=== PATIENT | female | born 1980 | race American Indian/Alaskan Native ===

== ENCOUNTER 2016-09-26 21:50 | Emergency (ER) | payer MEDICARE ==
[2016-09-26 22:30] VITALS: BP 111/76
[2016-09-26 22:42] LABS: Basophils % (Auto) 0.1 % (0.0-1.8); Eosinophils % (Auto) 0.8 % (0.0-4.3); Hematocrit 34.1 % (30.3-42.9); Hemoglobin 11.2 gm/dl (10.1-14.3); Mean Corpuscular HGB Conc 33 % (30-34); Mean Corpuscular Hemoglobin 27 pg (28-32); Mean Corpuscular Volume 82 fl (79-97); Platelet Count 230 K/mm3 (140-440); Red Blood Count 4.18 M/mm3 (3.65-5.03); Red Cell Distribution Width 15.6 % (13.2-15.2); White Blood Count 4.7 K/mm3 (4.5-11.0)
[2016-09-26 23:10] LABS: Anion Gap 17 mmol/L; BUN/Creatinine Ratio 21.66; Blood Urea Nitrogen 13 mg/dL (7-17); Calcium 9.3 mg/dL (8.4-10.2); Carbon Dioxide 23 mmol/L (22-30); Chloride 100.4 mmol/L (98-107); Glucose 91 mg/dL (65-100); Potassium 3.8 mmol/L (3.6-5.0); Sodium 137 mmol/L (137-145)
--- NOTE | 2016-10-01 13:39 | ED Elopement Review ---
ED Pt Elopement review - Results review Lab results: Laboratory Tests 09/26/16 09/26/16 22:32 22:32 WBC 4.7 RBC 4.18 Hgb 11.2 Hct 34.1 MCV 82 MCH 27 L MCHC 33 RDW 15.6 H Plt Count 230 Lymph % (Auto) 26.0 [place] % (Auto) 10.1 H Eos % (Auto) 0.8 Baso % (Auto) 0.1 Lymph # 1.2 [place] # 0.5 Eos # 0.0 Baso # 0.0 Seg Neutrophils % 63.0 Seg Neutrophils # 2.9 Sodium 137 Potassium 3.8 Chloride 100.4 Carbon Dioxide 23 Anion Gap 17 BUN 13 Creatinine 0.6 L Estimated GFR > 60 BUN/Creatinine Ratio 21.66 Glucose 91 Calcium 9.3 Troponin T < 0.010 - Call Back decision Pt Call Back Decision: No action required
== END 2016-09-27 02:23 | disposition left against medical advice (07) ==
LOC: ED 21:50
DX: R07.89 Other chest pain (principal); R05 Cough; Z53.21 Procedure and treatment not carried out due to patient leaving prior to being seen by health care provider
CPT/HCPCS: 36415; 80048; 84484; 85025; 93005; 93010

== ENCOUNTER 2016-10-03 15:39 | Emergency (ER) | payer MEDICARE ==
[2016-10-03 16:23] LABS: Basophils % (Auto) 0.1 % (0.0-1.8); Eosinophils % (Auto) 0.6 % (0.0-4.3); Hematocrit 34.2 % (30.3-42.9); Mean Corpuscular HGB Conc 32 % (30-34); Mean Corpuscular Hemoglobin 27 pg (28-32); Mean Corpuscular Volume 83 fl (79-97); Platelet Count 219 K/mm3 (140-440); Red Blood Count 4.12 M/mm3 (3.65-5.03); Red Cell Distribution Width 16.3 % (13.2-15.2); White Blood Count 5.3 K/mm3 (4.5-11.0)
[2016-10-03 16:34] LABS: Anion Gap 19 mmol/L; BUN/Creatinine Ratio 18.33; Blood Urea Nitrogen 11 mg/dL (7-17); Carbon Dioxide 23 mmol/L (22-30); Chloride 99.5 mmol/L (98-107); Glucose 91 mg/dL (65-100); Sodium 137 mmol/L (137-145)
--- NOTE | 2016-10-03 19:46 | Emergency Department Report ---
HPI - General Chief Complaint: Chest Pain Time Seen by Provider: 10/03/16 19:21 - HPI HPI: Patient here reported she is having nausea and chest pain. She has been having chest pain for years but no she's having chest pain 1 month. On the right side of her chest pain is 6 out of 10 and feels like pressure. Patient has a history of psych disorder to include schizophrenia. Patient says she forgot to tell triage nurse that she had a blood clot in her lung last year and she was on blood thinner and was taken off of it 5 months ago. She says she thinks it was in her lungs or in her abdomen but she is not sure. She said the chest pain comes and goes. She denies any nausea or vomiting to me. Denies Fever chills. Denies any history of heart disease. SHe said when she had her chest pain today had worked her up but she didn't follow up with cardiology. Patient denies any leg pain or swelling. Denies any pain in her calf. Denies any coughing. ED Past Medical Hx - Past Medical History Previous Medical History?: Yes Hx Pulmonary Embolism: Yes (2016 per patient) Hx Psychiatric Treatment: Yes (PSCHY/SCHIZO) - Surgical History Past Surgical History?: Yes Additional Surgical History: x2. bowel resection. tubal ligation - Family History Family history: hypertension - Social History Smoking Status: Former Smoker Substance Use Type: None - Medications Home Medications: Home Medications Medication Instructions Recorded Confirmed Last Taken Type Promethazine [Phenergan TAB] 25 mg PO Q8HR PRN #15 tab 10/03/16 Unknown Rx ED Review of Systems ROS: Stated complaint: NAUSEA/CHEST PAIN Other details as noted in HPI Comment: All other systems reviewed and negative Constitutional: denies: chills, fever Eyes: denies: eye discharge ENT: denies: throat pain, congestion Respiratory: no symptoms reported Cardiovascular: chest pain. denies: palpitations (right chest), dyspnea on exertion, edema, syncope Gastrointestinal: nausea. denies: abdominal pain, vomiting, diarrhea, constipation, hematemesis, melena, hematochezia Genitourinary: denies: urgency, dysuria, frequency, hematuria, discharge Musculoskeletal: denies: back pain, joint swelling, arthralgia, myalgia Skin: denies: rash Neurological: denies: headache, weakness, numbness, paresthesias, confusion, abnormal gait, vertigo Physical Exam - Physical Exam Vital Signs: Vital Signs 10/03/16 15:51 Temperature 98.6 F Pulse Rate 80 Respiratory 20 Rate Blood Pressure 117/70 O2 Sat by Pulse 100 Oximetry Vital Signs 10/03/16 05 15:51 20:29 Temperature 98.6 F 99.3 F Pulse Rate 80 63 Respiratory 20 18 Rate Blood Pressure 117/70 Blood Pressure 108/63 [Right] O2 Sat by Pulse 100 100 Oximetry General: This is a 36-year-old female well-nourished well-developed in no acute distress. Physical Exam: Head: Normocephalic atraumatic Mouth: Moist, no pharyngeal exudate or erythema. Uvula is midline and oral airway is patent. No facial swelling. No peritonsillar abscesses. Neck: Supple, no C-spine tenderness, no tracheal deviation. Nontender to palpate. no adenopathy Abdomen: Soft, nontender to palpate in all quadrants, normal bowel sounds in all quadrant and negative CVA tenderness bilaterally. Back: No vertebral or paraspinal tenderness. No saddle anesthesia. Patient able to ambulate without any difficulties. Negative SLR bilaterally. Eyes: Bilateral pupils equal and reactive to light, bilateral EOM intact. Bilateral sclera and conjunctiva without injection. Normal accommodation. Lungs: Clear to auscultate bilaterally no rhonchi wheezes or rales. Normal work of breathing . No chest wall tenderness extremity; No CCE. +2 pulses. No neurovascular compromise Cardiovascular: S1-S2, regular rate rhythm. No murmurs. Capillary refill is less than 3 seconds Skin: clean Dry and intact no rash no lesions Psych: Normal mood and behavior ED Course Vital Signs 10/03/16 15:51 Temperature 98.6 F Pulse Rate 80 Respiratory 20 Rate Blood Pressure 117/70 O2 Sat by Pulse 100 Oximetry Vital Signs 10/03/16 10/03/16 15:51 20:29 Temperature 98.6 F 99.3 F Pulse Rate 80 63 Respiratory 20 18 Rate Blood Pressure 117/70 Blood Pressure 108/63 [Right] O2 Sat by Pulse 100 100 Oximetry - Reevaluation(s) Reevaluation #1: 10/03/16 23:43 She given Zofran 4 mg ODT for nausea. Reevaluation #2: 10/03/16 23:45 tolerate oral liquids in the emergency room. She has protein and trace ketones in her urine. ED Medical Decision Making - Lab Data Result diagrams: 10/03/16 16:02 10/03/16 16:02 Lab Results 10/03/16 10/03/16 10/03/16 Range/Units 16:02 16:02 19:15 WBC 5.3 (4.5-11.0) K/mm3 RBC 4.12 (3.65-5.03) M/mm3 Hgb 11.0 (10.1-14.3) gm/dl Hct 34.2 (30.3-42.9) % MCV 83 (79-97) fl MCH 27 L (28-32) pg MCHC 32 (30-34) % RDW 16.3 H (13.2-15.2) % Plt Count 219 (140-440) K/mm3 Lymph % (Auto) 29.7 (13.4-35.0) % [place] % (Auto) 10.7 H (0.0-7.3) % Eos % (Auto) 0.6 (0.0-4.3) % Baso % (Auto) 0.1 (0.0-1.8) % Lymph # 1.6 (1.2-5.4) K/mm3 [place] # 0.6 (0.0-0.8) K/mm3 Eos # 0.0 (0.0-0.4) K/mm3 Baso # 0.0 (0.0-0.1) K/mm3 Seg Neutrophils % 58.9 (40.0-70.0) % Seg Neutrophils # 3.1 (1.8-7.7) K/mm3 PT (12.2-14.9) Sec. INR (0.87-1.13) APTT (24.2-36.6) Sec. D-Dimer (0-234) ng/mlDDU Sodium 137 (137-145) mmol/L Potassium 4.0 (3.6-5.0) mmol/L Chloride 99.5 (98-107) mmol/L Carbon Dioxide 23 (22-30) mmol/L Anion Gap 19 mmol/L BUN 11 (7-17) mg/dL Creatinine 0.6 L (0.7-1.2) mg/dL Estimated GFR > 60 ml/min BUN/Creatinine Ratio 18.33 % Glucose 91 (65-100) mg/dL Calcium 9.0 (8.4-10.2) mg/dL Troponin T < 0.010 < 0.010 (0.00-0.029) ng/mL Urine Color (Yellow) Urine Turbidity (Clear) Urine pH (5.0-7.0) Ur Specific [place] (1.003-1.030) Urine Protein (Negative) mg/dL Urine Glucose (UA) (Negative) mg/dL Urine Ketones (Negative) mg/dL Urine Blood (Negative) Urine Nitrite (Negative) Urine Bilirubin (Negative) Urine Urobilinogen (<2.0) mg/dL Ur Leukocyte Esterase (Negative) Urine WBC (Auto) (0.0-6.0) /HPF Urine RBC (Auto) (0.0-6.0) /HPF U Epithel Cells (Auto) (0-13.0) /HPF Urine Bacteria (Auto) (Negative) /HPF Urine Mucus /HPF Urine HCG, Qual (Negative) 10/03/16 10/03/16 10/03/16 Range/Units 20:00 20:00 20:51 WBC (4.5-11.0) K/mm3 RBC (3.65-5.03) M/mm3 Hgb (10.1-14.3) gm/dl Hct (30.3-42.9) % MCV (79-97) fl MCH (28-32) pg MCHC (30-34) % RDW (13.2-15.2) % Plt Count (140-440) K/mm3 Lymph % (Auto) (13.4-35.0) % [place] % (Auto) (0.0-7.3) % Eos % (Auto) (0.0-4.3) % Baso % (Auto) (0.0-1.8) % Lymph # (1.2-5.4) K/mm3 [place] # (0.0-0.8) K/mm3 Eos # (0.0-0.4) K/mm3 Baso # (0.0-0.1) K/mm3 Seg Neutrophils % (40.0-70.0) % Seg Neutrophils # (1.8-7.7) K/mm3 PT 13.2 (12.2-14.9) Sec. INR 1.01 (0.87-1.13) APTT 27.6 (24.2-36.6) Sec. D-Dimer 362.52 H (0-234) ng/mlDDU Sodium (137-145) mmol/L Potassium (3.6-5.0) mmol/L Chloride (98-107) mmol/L Carbon Dioxide (22-30) mmol/L Anion Gap mmol/L BUN (7-17) mg/dL Creatinine (0.7-1.2) mg/dL Estimated GFR ml/min BUN/Creatinine Ratio % Glucose (65-100) mg/dL Calcium (8.4-10.2) mg/dL Troponin T (0.00-0.029) ng/mL Urine Color Yellow (Yellow) Urine Turbidity Clear (Clear) Urine pH 5.0 (5.0-7.0) Ur Specific [place] 1.030 (1.003-1.030) Urine Protein 30 mg/dl (Negative) mg/dL Urine Glucose (UA) Neg (Negative) mg/dL Urine Ketones Tr (Negative) mg/dL Urine Blood Neg (Negative) Urine Nitrite Neg (Negative) Urine Bilirubin Neg (Negative) Urine Urobilinogen 2.0 (<2.0) mg/dL Ur Leukocyte Esterase Tr (Negative) Urine WBC (Auto) 4.0 (0.0-6.0) /HPF Urine RBC (Auto) 1.0 (0.0-6.0) /HPF U Epithel Cells (Auto) 5.0 (0-13.0) /HPF Urine Bacteria (Auto) 1+ (Negative) /HPF Urine Mucus 3+ /HPF Urine HCG, Qual Negative (Negative) 10/03/16 Range/Units 21:22 WBC (4.5-11.0) K/mm3 RBC (3.65-5.03) M/mm3 Hgb (10.1-14.3) gm/dl Hct (30.3-42.9) % MCV (79-97) fl MCH (28-32) pg MCHC (30-34) % RDW (13.2-15.2) % Plt Count (140-440) K/mm3 Lymph % (Auto) (13.4-35.0) % [place] % (Auto) (0.0-7.3) % Eos % (Auto) (0.0-4.3) % Baso % (Auto) (0.0-1.8) % Lymph # (1.2-5.4) K/mm3 [place] # (0.0-0.8) K/mm3 Eos # (0.0-0.4) K/mm3 Baso # (0.0-0.1) K/mm3 Seg Neutrophils % (40.0-70.0) % Seg Neutrophils # (1.8-7.7) K/mm3 PT (12.2-14.9) Sec. INR (0.87-1.13) APTT (24.2-36.6) Sec. D-Dimer (0-234) ng/mlDDU Sodium (137-145) mmol/L Potassium (3.6-5.0) mmol/L Chloride (98-107) mmol/L Carbon Dioxide (22-30) mmol/L Anion Gap mmol/L BUN (7-17) mg/dL Creatinine (0.7-1.2) mg/dL Estimated GFR ml/min BUN/Creatinine Ratio % Glucose (65-100) mg/dL Calcium (8.4-10.2) mg/dL Troponin T < 0.010 (0.00-0.029) ng/mL Urine Color (Yellow) Urine Turbidity (Clear) Urine pH (5.0-7.0) Ur Specific [place] (1.003-1.030) Urine Protein (Negative) mg/dL Urine Glucose (UA) (Negative) mg/dL Urine Ketones (Negative) mg/dL Urine Blood (Negative) Urine Nitrite (Negative) Urine Bilirubin (Negative) Urine Urobilinogen (<2.0) mg/dL Urine culture pending Ur Leukocyte Esterase (Negative) Urine WBC (Auto) (0.0-6.0) /HPF Urine RBC (Auto) (0.0-6.0) /HPF U Epithel Cells (Auto) (0-13.0) /HPF Urine Bacteria (Auto) (Negative) /HPF Urine Mucus /HPF Urine HCG, Qual (Negative) Urine culture pending - EKG Data -: EKG Interpreted by Me (Dr. Reese) EKG shows normal: sinus rhythm (75 bpm) Rate: normal - EKG Data Interpretation: no acute changes, normal EKG - Radiology Data Radiology results: report reviewed Chest x-ray revealed no acute cardiopulmonary process CTA chest reveals no evidence of pulmonary embolism. No acute findings and chest. Heart and thoracic aorta appears normal. - Medical Decision Making ED Course: I explained all lab results today include urine and diagnostics to include chest x-ray and CT scan of the chest the patient. I explained to her that she did not have any pulmonary embolism which is a blood clot in her lungs. Bilateral lower extremity and bilateral upper extremity without any clubbing cyanosis or edema. No calf tenderness bilaterally and negative Homans sign. Proceeded to do CT angiogram of the chest because d-dimer was elevated. Patient has chronic chest pain which she sought medical attention for per patient several times and she said everything came back negative at all times. He told me that she had clot in her lungs or abdomen she's not sure where last stair and she was on blood thinner and was taken off of it 5 months ago. His constipation that she has some protein and trace ketones in her urine so she needs to follow up with her primary care physician which she says she does have a doctor for follow-up urinalysis. Pt vital signs remained stable throughout ED course she was given Zofran 4 mg ODT for nausea which is resolved. Currently not having any chest pain. Patient discharged home in stable condition with prescription for Phenergan when necessary and to follow-up with her primary care physician tomorrow. Critical care attestation.: If time is entered above; I have spent that time in minutes in the direct care of this critically ill patient, excluding procedure time. ED Disposition Clinical Impression: Atypical chest pain, Nausea alone Protein in urine Qualifiers: Proteinuria type: unspecified Qualified Code(s): R80.9 - Proteinuria, unspecified Disposition: DISCHARGED TO HOME OR SELFCARE Is pt being admited?: No Does the pt Need Aspirin: No Condition: Stable Instructions: Chest Pain (ED), Acute Nausea and Vomiting (ED) Additional Instructions: Please follow up with her primary care physician in the morning for follow-up visits chest pain. You will have to have a repeat urinalysis in one week because your urine had protein and ketones. Please follow up with [employer] as instructed for chronic chest pain Please do not drive or operate heavy machinery while taking Phenergan as this medication with cause drowsiness Prescriptions: Promethazine [Phenergan TAB] 25 mg PO Q8HR PRN #15 tab PRN Reason: Nausea Referrals: PRIMARY CAREMD [Primary Care Provider] - 10/04/16 JADA HART MD [Staff Physician] - 10/08/16 Forms: Work/School Release Form(ED)
[2016-10-03] MEDS ORDERED: ZOFRAN ODT PO ONE (19:50)
[2016-10-03 20:22] LABS: Bacteria,Urine 1+ /HPF (Negative); Bilirubin,Urine NEG (Negative); Blood,Urine NEG (Negative); Ketones,Urine TR mg/dL (Negative); Leukocyte Esterase,Urine TR (Negative); Mucus,Urine 3+ /HPF; Nitrite,Urine NEG (Negative)
[2016-10-03 20:29] VITALS: BP 108/63
[2016-10-03] MEDS ORDERED: NACL ONE (21:00)
[2016-10-03 21:08] LABS: INR 1.01 (0.87-1.13); Partial Thromboplastin Time 27.6 Sec. (24.2-36.6)
--- NOTE | 2016-10-03 21:16 | XRay Report ---
FINAL REPORT EXAM: XR CHEST ROUTINE 2V HISTORY: chest pain TECHNIQUE: 2 views of the chest. PRIORS: None. FINDINGS: The cardiomediastinal silhouette appears normal. The lungs are clear. The bones and soft tissues are unremarkable. IMPRESSION: No evidence of acute cardiopulmonary disease
--- NOTE | 2016-10-03 22:28 | Cat Scan Report ---
FINAL REPORT EXAM: CT ANGIO CHEST HISTORY: chest pain TECHNIQUE: High-resolution helical axial images were obtained of the chest during intravenous administration of iodinated contrast. Images are reconstructed in the sagittal and coronal planes. PRIORS: None. FINDINGS: There is no evidence of pulmonary embolism, the pulmonary arteries opacify normally. The heart and thoracic aorta appear normal. There is residual thymic tissue in the anterior mediastinum. The lungs are clear. Images through the upper abdomen are unremarkable. The bones are unremarkable. IMPRESSION: 1. No evidence of pulmonary embolism. 2. No acute findings in the chest
== END 2016-10-04 00:01 | disposition home or self-care (01) ==
LOC: ED 15:39
DX: R07.89 Other chest pain (principal); R80.9 Proteinuria, unspecified; R11.0 Nausea; F20.9 Schizophrenia, unspecified; Z87.891 Personal history of nicotine dependence
CPT/HCPCS: 36415; 71020; 71275; 80048; 81001; 81025; 84484; 85025; 85379; 85610; 85730; 87086; 93005; 93010; 99285; Q9967; Q0162